=== PATIENT | male | born 1955 | race Hispanic/Latino ===

== ENCOUNTER 2022-01-28 15:43 | Inpatient (IN) | payer SELFPAY ==
[2022-01-28 16:07] LABS: #Lymphocytes 3.5 thou/uL (1.20-3.40); #Monocytes 0.4 thou/uL (0.11-0.59); #Neutrophils 5.4 thou/uL (1.40-6.50); %Basophils 0.2 % (0.0-1.0); %Eosinophils 0.4 % (0.0-10.0); %Lymphocytes 37.4 % (21.0-51.0); %Monocytes 4.2 % (0.0-10.0); %Neutrophils 57.9 % (42.0-75.0); Hemoglobin 15.8 g/dL (14.0-18.0); Mean Corpuscular HGB CONC 34.3 g/dL (32.0-36.0); Mean Corpuscular Hemoglobin 30.7 pg (27.0-31.0); Mean Corpuscular Volume 89.5 fL (78.0-98.0); Mean Platelet Volume 7.3 fL (7.4-10.4); Platelet Count 171 thou/uL (130-400); RBC Distribution Width 12.5 % (11.5-14.5); Red Blood Cell (RBC) Count 5.16 mill/uL (4.70-6.10); White Blood Cell (WBC) Count 9.4 thou/uL (4.8-10.8)
[2022-01-28 16:20] LABS: INR-International Normal Ratio 1.2; PTT 34.8 sec (22.9-36.1); Prothrombin Time 14.9 sec (12.0-14.7)
[2022-01-28 16:27] LABS: ALT (SGPT) 14 U/L (8-55); AST (SGOT) 16 U/L (5-34); Albumin 4.4 g/dL (3.4-4.8); Alkaline Phosphatase 97 U/L (40-110); Anion Gap 15 mmol/L (10-20); BUN (Urea Nitrogen) 10 mg/dL (8.4-25.7); Bilirubin, Total 1.9 mg/dL (0.2-1.2); CK (CPK) 82 U/L (30-200); Calc. Creatinine Clearance 0 mL/min (70-130); Calcium 9.3 mg/dL (7.8-10.44); Carbon Dioxide 24 mmol/L (23-31); Chloride 102 mmol/L (98-107); Globulin 3.2 g/dL (2.4-3.5); Glucose 160 mg/dL (80-115); Potassium 3.9 mmol/L (3.5-5.1); Protein, Total 7.6 g/dL (5.8-8.1); Sodium 137 mmol/L (136-145)
[2022-01-28] MEDS ORDERED: Aspirin Chewable 81 MG TAB ONE (17:11)
[2022-01-28] MEDS ORDERED: Acetaminophen 325 MG TAB PO PRN (18:08)
[2022-01-28] MEDS ORDERED: hydrALAZINE 20 MG/ML VIAL SLOW IVP PRN (18:09)
[2022-01-28] MEDS ORDERED: Ondansetron ODT 4 MG TAB SL PRN (18:15)
[2022-01-28] MEDS ORDERED: Ondansetron PF 4 MG/2 ML Vial IVP PRN (18:15)
[2022-01-28] MEDS ORDERED: Dextrose 5% in Water 1,000 ML IV PRN (18:25)
[2022-01-28] MEDS ORDERED: HumaLOG 300 UNITS/3 ML VIAL SC PRN (18:25)
[2022-01-28] MEDS ORDERED: Dextrose 50% Abboject 50 ML SYRINGE SLOW IVP PRN (18:25)
[2022-01-28 19:13] LABS: Hemoglobin A1c 9.1 % (4.0-6.0)
[2022-01-28 19:20] LABS: Troponin I Less than 0.010 ng/mL (< 0.028)
[2022-01-28 20:57] VITALS: BMI 32.5
[2022-01-28] MEDS ORDERED: Atorvastatin Calcium 40 MG TAB PO SCH (21:00)
[2022-01-28 22:52] LABS: Troponin I Less than 0.010 ng/mL (< 0.028)
[2022-01-29 04:41] LABS: Cardiac Risk 4.4 (Less than 4.5)
[2022-01-29] MEDS: Aspirin 81 mg Enteric Coated Tablet PO SCH (08:44)
[2022-01-29] MEDS: metFORMIN 500 MG TAB PO SCH ×2 (08:45→17:30)
[2022-01-29 19:45] LABS: SARS-CoV-2 PCR by NAA Not Detected (NotDetected)
[2022-01-30] MEDS: metFORMIN 500 MG TAB PO SCH ×2 (08:35→16:08)
[2022-01-30] MEDS: Aspirin 81 mg Enteric Coated Tablet PO SCH (08:40)
[2022-01-30 16:03] VITALS: TEMP 98
[2022-01-30 16:08] VITALS: BP 142/74
== END 2022-01-30 16:26 | disposition home or self-care (01) | DRG 66 ==
LOC: ERS 15:43 → NEURO 17:02 → OBSVTOIN 01-29 13:12
PROVIDERS: ADMIT Internal Medicine; ATTEND Internal Medicine
DX: I63.443 Cerebral infarction due to embolism of bilateral cerebellar arteries (principal); Z20.822 Contact with and (suspected) exposure to COVID-19; R29.701 NIHSS score 1; R20.0 Anesthesia of skin; E11.9 Type 2 diabetes mellitus without complications; I10 Essential (primary) hypertension; G51.0 Bell's palsy; R20.2 Paresthesia of skin; Z88.0 Allergy status to penicillin; Z88.8 Allergy status to other drugs, medicaments and biological substances; Z79.899 Other long term (current) drug therapy; Z79.84 Long term (current) use of oral hypoglycemic drugs
CPT/HCPCS: 36415; 36416; 70450; 70551; 80053; 80061; 82550; 83036; 84484; 85025; 85379; 85610; 85730; 93005; 93306; 93880; 94760; G0378; U0003; U0005